=== PATIENT | male | born 1990 ===

== ENCOUNTER 2023-02-01 07:20 | Day surgery (SDC) | payer OTHER ==
[2023-02-01] MEDS ORDERED: ACETAMINOPHEN 1000 MG/100 ML BAG IVPB ONE (08:04)
[2023-02-01] MEDS ORDERED: SODIUM CHLORIDE 1,000 ML IV STA (08:04)
[2023-02-01] MEDS ORDERED: FAMOTIDINE 20 MG/50 ML IVPB 20 MG/50 ML MG IVPB ONE ×2 (08:04→08:22)
[2023-02-01] MEDS ORDERED: ONDANSETRON 4 MG/2 ML VIAL IVPB ONE (08:04)
[2023-02-01] MEDS ORDERED: ONDANSETRON 4 MG/2 ML VIAL ONE (08:21)
[2023-02-01] MEDS ORDERED: ACETAMINOPHEN INJECTION 100 ML IVPB ONE (08:22)
[2023-02-01 09:10] LABS: HEMATOCRIT 46.7 % (35.4-49); HEMOGLOBIN 15.8 G/dL (11.7-16.9); MCHC 33.7 g/dl (32.0-35.9); MEAN CELL VOLUME 91.9 fl (80-96); MEAN PLT VOLUME 8.3 fl (7.5-11.1); PLATELET COUNT 224.5 10^3/uL (134-434); RBC 5.08 10^6/uL (4.00-5.60); RDW 13.3 % (11.9-15.9); WHITE BLOOD COUNT 15.6 10^3/uL (4.0-10.8)
[2023-02-01 09:12] LABS: ALBUMIN 4.6 g/dl (3.4-5.0); BILIRUBIN,TOTAL 0.5 mg/dl (0.2-1); CALCIUM 9.4 mg/dl (8.5-10); POTASSIUM 3.9 mmol/L (3.5-5.1); TOT PROT 7.6 g/dl (6.4-8.2)
[2023-02-01] MEDS ORDERED: HYDROmorphone HCL/PF 1 MG/ML VIAL ONE ×3 (09:18→14:34)
[2023-02-01] MEDS ORDERED: HYDROmorphone HCl 2 MG/ML VIAL IVPB ONE ×3 (09:23→14:29)
[2023-02-01] MEDS ORDERED: SODIUM CHLORIDE 1,000 ML IV SCH (10:00)
[2023-02-01 12:03] LABS: PLATELET ESTIMATE ADEQUATE
[2023-02-01] MEDS ORDERED: PIPERACILLIN/TAZOB 4.5 GM 4.5 GM in DEXTROSE 5%-WATER 100 ML IVPB ONE (14:19)
[2023-02-01] MEDS ORDERED: PIPERACILLIN/TAZOBACTAM 4.5 GM VIAL IVPB ONE (14:25)
[2023-02-01] MEDS: DEXTROSE 5%-0.45% SALINE 1,000 ML IV SCH (17:34)
[2023-02-01 18:01] VITALS: BMI 34.0
[2023-02-01] MEDS ORDERED: PIPERACILLIN/TAZOB 4.5 GM 4.5 GM in DEXTROSE 5%-WATER 100 ML IVPB SCH (21:00)
[2023-02-01] MEDS: ACETAMINOPHEN 1000 MG/100 ML BAG IVPB PRN (21:06)
[2023-02-01] MEDS: PIPERACILLIN/TAZOB 4.5 GM 4.5 GM in DEXTROSE 5%-WATER 100 ML IVPB SCH (21:06)
[2023-02-02] MEDS: PIPERACILLIN/TAZOB 4.5 GM 4.5 GM in DEXTROSE 5%-WATER 100 ML IVPB SCH ×3 (03:05→22:07)
[2023-02-02] MEDS: ACETAMINOPHEN 1000 MG/100 ML BAG IVPB PRN (06:23)
[2023-02-02] MEDS ORDERED: ONDANSETRON 4 MG/2 ML VIAL IVPUSH PRN ×2 (06:50→14:43)
[2023-02-02 08:45] LABS: BILIRUBIN,TOTAL 1.5 mg/dl (0.2-1); CALCIUM 8.9 mg/dl (8.5-10); CREATININE 0.9 mg/dl (0.55-1.3); POTASSIUM 3.8 mmol/L (3.5-5.1)
[2023-02-02 09:37] LABS: BASO % 0.1 % (0-2.0); EOS % 0.8 % (0-4.5); HEMATOCRIT 43.1 % (35.4-49); HEMOGLOBIN 14.9 GM/dL (11.7-16.9); LYMPH % 6.6 % (8-40); MCH 30.9 pg (25.7-33.7); MCHC 34.7 g/dl (32.0-35.9); MEAN CELL VOLUME 89.1 fl (80-96); MEAN PLT VOLUME 8.2 fl (7.5-11.1); MONO % 8.4 % (3.8-10.2); NEUT % 84.1 % (42.8-82.8); PLATELET COUNT 229 10^3/uL (134-434); RBC 4.83 M/mm3 (4.00-5.60); RDW 12.7 % (11.9-15.9); WHITE BLOOD COUNT 19.1 K/mm3 (4.0-10.0)
[2023-02-02] MEDS ORDERED: BUPIVACAINE HCL/PF 2.5 MG/ML - 30 ML VIAL IJ ONE (12:28)
[2023-02-02] MEDS ORDERED: HYDROmorphone HCL/PF 1 MG/ML VIAL ONE (12:59)
[2023-02-02] MEDS ORDERED: DEXAMETHASONE SOD PHOSPHATE 4 MG/1 ML VIAL ONE (12:59)
[2023-02-02] MEDS ORDERED: ONDANSETRON 4 MG/2 ML VIAL ONE ×2 (12:59→15:09)
[2023-02-02] MEDS ORDERED: MIDAZOLAM HCL 2 MG/2 ML SINGLE DOSE VIAL ONE (12:59)
[2023-02-02] MEDS ORDERED: PROPOFOL 20 ML ONE (12:59)
[2023-02-02] MEDS ORDERED: ROCURONIUM BROMIDE 50 MG/5 ML SYRINGE ONE (12:59)
[2023-02-02] MEDS ORDERED: ceFAZolin SODIUM 1 GM VIAL ONE (13:07)
[2023-02-02] MEDS ORDERED: NEOSTIGMINE METHYLSULFATE 0.5 MG/1 ML - 10 ML MDV ONE (14:22)
[2023-02-02] MEDS ORDERED: FENTANYL CITRATE/PF 50 MCG/ML VIAL ONE ×2 (14:44→15:09)
[2023-02-02] MEDS ORDERED: LACTATED RINGERS SOLUTION 1,000 ML IV SCH (14:45)
[2023-02-02] MEDS: oxyCODONE HCL 5 MG TABLET PO PRN (18:06)
[2023-02-02] MEDS: DEXTROSE 5%-0.45% SALINE 1,000 ML IV SCH (20:00)
[2023-02-02] MEDS ORDERED: PIPERACILLIN/TAZOB 4.5 GM 4.5 GM in DEXTROSE 5%-WATER 100 ML IVPB SCH (21:00)
[2023-02-02] MEDS ORDERED: ACETAMINOPHEN 1000 MG/100 ML BAG IVPB PRN (21:57)
[2023-02-03] MEDS: oxyCODONE HCL 5 MG TABLET PO PRN (00:33)
[2023-02-03] MEDS: PIPERACILLIN/TAZOB 4.5 GM 4.5 GM in DEXTROSE 5%-WATER 100 ML IVPB SCH ×2 (03:06→08:52)
[2023-02-03] MEDS ORDERED: ACETAMINOPHEN 1000 MG/100 ML BAG IVPB SCH (08:30)
[2023-02-03 08:39] LABS: ALBUMIN 3.8 g/dl (3.4-5.0); BILIRUBIN,TOTAL 1.2 mg/dl (0.2-1); CALCIUM 8.9 mg/dl (8.5-10); CREATININE 1.2 mg/dl (0.55-1.3); POTASSIUM 3.5 mmol/L (3.5-5.1); TOT PROT 6.8 g/dl (6.4-8.2)
[2023-02-03] MEDS ORDERED: KETOROLAC TROMETHAMINE 30 MG/1 ML VIAL IVPUSH SCH (09:00)
[2023-02-03 09:41] LABS: HEMOGLOBIN 14.6 GM/dL (11.7-16.9)
[2023-02-03 09:44] LABS: BASO % 0.2 % (0-2.0); EOS % 0.8 % (0-4.5); LYMPH % 12.2 % (8-40); MCH 31.2 pg (25.7-33.7); MCHC 34.7 g/dl (32.0-35.9); MEAN PLT VOLUME 8.2 fl (7.5-11.1); NEUT % 76.8 % (42.8-82.8); PLATELET COUNT 242 10^3/uL (134-434); RBC 4.67 M/mm3 (4.00-5.60); RDW 12.9 % (11.9-15.9); WHITE BLOOD COUNT 14.9 K/mm3 (4.0-10.0)
[2023-02-03 14:40] VITALS: BP 113/65; PULSE 93; RESP 17; TEMP 98.2
[2023-02-03] MEDS ORDERED: PIPERACILLIN/TAZOB 4.5 GM 4.5 GM in DEXTROSE 5%-WATER 100 ML IVPB SCH (15:00)
== END 2023-02-03 16:24 | disposition home or self-care (01) ==
LOC: FER 07:20 → INTOOBSV 14:37 → UNDOADMOB 14:37 → FM/S 14:37 → UNDOADMOB 16:51 → FM/S 02-02 17:30 → FASUSAT 02-02 17:30 → SUATTDRO 02-02 17:30 → FASUSAT 02-03 16:24
PROVIDERS: ATTEND Internal Medicine
PROC: 0FT44ZZ Resection of Gallbladder, Percutaneous Endoscopic Approach (ICD-10-PCS; principal; 2023-02-02 13:16)
DX: K80.00 Calculus of gallbladder with acute cholecystitis without obstruction (principal); K82.A1 Gangrene of gallbladder in cholecystitis
CPT/HCPCS: 36415; 74177-TC; 76705-TC; 80053; 83690; 85025; 85027; 87040; 88304-TC; 94760; 99285-25; C9803-CS; Q9967; U0003; U0005